=== PATIENT | male | born 1990 | race Caucasian/White ===

== ENCOUNTER 2018-08-19 20:25 | Emergency (ER) | payer BC ==
[~2018-08-19] VITALS: Ht 190.5 cm; Wt 140.0 kg
[2018-08-19] MEDS ORDERED: WELLBUTRIN 75MG75 MG (21:03)
[2018-08-19] MEDS ORDERED: CITALOPRAM HBR10 MG PO (21:03)
[2018-08-19 21:17] LABS: EOS # 0.2 (0.04-0.40); EOS % 1.9 % (0.0-4.0); HEMOGLOBIN 14.3 g/dL (13.5-18.0); MEAN CELL VOLUME 85 fl (78-100); MEAN CORPUSCULAR HEMOGLOBIN 28 pg (27-31); MEAN CORPUSCULAR HGB CONC 33 g/dL (33-37); MEAN PLATELET VOLUME 10.5 fl (7.4-10.4); MONO # 0.9 (0.20-0.80); NEU # 6.4 (1.40-6.50); PLATELET COUNT 277 K/mm3 (130-400); RED BLOOD COUNT 5.09 M/mm3 (4.20-5.60); RED CELL DISTRIBUTION WIDTH 13.3 % (11.5-14.5); WHITE BLOOD COUNT 9.6 K/mm3 (4.8-10.8)
[2018-08-19 21:30] LABS: ALBUMIN 4.1 g/dL (3.5-5.0); POTASSIUM 3.1 mmol/L (3.6-5.0); TOTAL BILIRUBIN 0.3 mg/dL (0.2-1.3)
[2018-08-19 21:42] LABS: TROPONIN-I < 0.03 ng/mL (0.00-0.06)
[2018-08-19 21:44] LABS: CKMB ISOENZYME 0.8 ng/mL (0.6-3.5)
[2018-08-19 21:46] LABS: D-DIMER 0.24 mg/L FEU (0.15-0.50)
[2018-08-20 01:14] VITALS: BP 112/62
== END 2018-08-20 01:14 | disposition home or self-care (01) ==
LOC: ED 20:25
PROVIDERS: Physician Assistant
DX: R07.89 Other chest pain (principal); E87.6 Hypokalemia; F32.9 Major depressive disorder, single episode, unspecified; F98.8 Other specified behavioral and emotional disorders with onset usually occurring in childhood and adolescence; F17.210 Nicotine dependence, cigarettes, uncomplicated; Z98.890 Other specified postprocedural states

== ENCOUNTER → 2021-06-14 | Outpatient (CLI) | payer BC ==
[~2021-06-14] MED LIST: ADDERALL 30 MG30 MG PO; CITALOPRAM HBR10 MG PO; PRILOSEC 20MG20 MG PO; WELLBUTRIN 75MG75 MG; ZOFRAN ODT4 MG PO
== END ==
LOC: RAD 13:00
DX: R22.1 Localized swelling, mass and lump, neck (principal)
CPT/HCPCS: Q9967